=== PATIENT | female | born 1990 | race Caucasian/White ===

== ENCOUNTER 2018-07-17 17:47 | Emergency (ER) | payer BC ==
--- NOTE | 2018-07-17 18:08 | EDM.PDOC ---
ED HPI GENERAL MEDICAL PROBLEM - General Chief Complaint: Eye Problems Stated Complaint: POSSIBLE PINK EYE Time Seen by Provider: 07/17/18 18:06 Source of Information: Reports: Patient History Limitations: Reports: No Limitations - History of Present Illness INITIAL COMMENTS - FREE TEXT/NARRATIVE: HISTORY AND PHYSICAL: History of present illness: Patient's 28-year-old female here with complaint of possible pinkeye. She states her eye started bothering her yesterday and today she woke up with some crusted shut. They have been red, itchy, with purulent drainage. She denies injury or chemical exposures. Does not wear contacts. She denies blurry vision or headache. Review of systems: As per history of present illness and below otherwise all systems reviewed and negative. Past medical history: As per history of present illness and as reviewed below otherwise noncontributory. Surgical history: As per history of present illness and as reviewed below otherwise noncontributory. Social history: No reported history of drug or alcohol abuse. Family history: As per history of present illness and as reviewed below otherwise noncontributory. Physical exam: General: Patient sitting comfortably in no acute distress and nontoxic appearing HEENT: Eyes are injected bilaterally with purulent drainage in the medial canthus bilaterally. Atraumatic, normocephalic, pupils reactive, negative for conjunctival pallor or scleral icterus, mucous membranes moist, throat clear, neck supple, nontender, trachea midline. No meningeal signs. Lungs: Clear to auscultation, breath sounds equal bilaterally, chest nontender. Heart: S1S2, regular, negative for clicks, rubs, or overt murmur. Abdomen: Soft, nondistended, nontender. Negative for masses or hepatosplenomegaly. Negative for costovertebral tenderness. Pelvis: Stable nontender. Genitourinary: Deferred. Rectal: Deferred. Extremities: Atraumatic, negative for cords or calf pain. Neurovascular unremarkable. Neuro: Awake, alert, oriented. Cranial nerves II through XII unremarkable. Cerebellum unremarkable. Motor and sensory unremarkable throughout. Exam nonfocal. Notes: Diagnostics: None Therapeutics: None Prescriptions: Polytrim ophthalmic Impression: Bilateral conjunctivitis Plan: 1. Use eye drops and warm compresses as instructed 2. Follow up with ophthalmology 3. Return to ED as needed as discussed Definitive disposition and diagnosis as appropriate pending reevaluation and review of above. Bilateral Eye Pain Score (Numeric/FACES): 2 - Related Data Allergies Allergy/AdvReac Type Severity Reaction Status Date / Time codeine Allergy Other Verified 07/17/18 18:02 Home Meds: Home Meds Polymyxin B/Trimethoprim [PolyTrim Ophth Soln] 1 drop OP TID #1 bottle 07/17/18 [Rx] ED ROS GENERAL - Review of Systems Review Of Systems: ROS reveals no pertinent complaints other than HPI. ED EXAM GENERAL W FULL EYE - Physical Exam Exam: See Below (See dictation) Course - Vital Signs Last Recorded V/S: Last Vital Signs Temp 96.3 F 07/17/18 18:00 Pulse 73 07/17/18 18:00 Resp 18 07/17/18 18:00 BP 135/79 07/17/18 18:00 Pulse Ox 98 07/17/18 18:00 Departure - Departure Time of Disposition: 18:06 Disposition: Home, Self-Care 01 Condition: Good Clinical Impression: Conjunctivitis - Discharge Information Prescriptions: Polymyxin B/Trimethoprim [PolyTrim Ophth Soln] 1 drop OP TID #1 bottle Instructions: Bacterial Conjunctivitis, [id number] Referrals: PCP,None [Primary Care Provider] - Forms: ED Department Discharge Additional Instructions: The following information is given to patients seen in the emergency department who are being discharged to home. This information is to outline your options for follow-up care. We provide all patients seen in our emergency department with a follow-up referral. The need for follow-up, as well as the timing and circumstances, are variable depending upon the specifics of your emergency department visit. If you don't have a primary care physician on staff, we will provide you with a referral. We always advise you to contact your personal physician following an emergency department visit to inform them of the circumstance of the visit and for follow-up with them and/or the need for any referrals to a consulting specialist. The emergency department will also refer you to a specialist when appropriate. This referral assures that you have the opportunity for follow-up care with a specialist. All of these measure are taken in an effort to provide you with optimal care, which includes your follow-up. Under all circumstances we always encourage you to contact your private physician who remains a resource for coordinating your care. When calling for follow-up care, please make the office aware that this follow-up is from your recent emergency room visit. If for any reason you are refused follow-up, please contact the Emergency Department at and asked to speak to the emergency department charge nurse. [facility] [address] [place] [address] 1. Use eye drops and warm compresses as instructed 2. Follow up with ophthalmology 3. Return to ED as needed as discussed
== END 2018-07-17 18:25 | disposition home or self-care (01) ==
LOC: MW.ED 17:47
DX: H10.9 Unspecified conjunctivitis (principal); Z88.5 Allergy status to narcotic agent
CPT/HCPCS: 99282